=== PATIENT | male | born 1945 | race African-American/Black ===

== ENCOUNTER → 2017-02-11 | Outpatient (CLI) | payer MEDICARE, MEDICAID ==
--- NOTE | 2017-02-11 13:28 | RADIOLOGY REPORT (SQ) ---
EXAM DESCRIPTION: CT LUNG CANCER SCREENING COMPLETED DATE/TIME: 02/11/2017 10:13 am REASON FOR STUDY: PERSONAL HX OF NICOTINE DEPENDENCE (Z87.891) Z87.891 PERSONAL HISTORY OF NICOTINE DEPENDENCE Has the patient had a Chest CT scan within the past year? No Was the patient offered tobacco cessation counseling? No Was the patient engaged in shared decision making for this test? Yes Does the patient have signs or symptoms of Lung Cancer? No Is the patient a smoker? No How many packs per year? 365 How many years since quitting smoking? 2 years Patients age: 71 COMPARISON: CT abdomen pelvis 10/19/2015 TECHNIQUE: Low Dose CT scan performed of the chest without intravenous contrast for purposes of scre ening for lung cancer. Images reviewed with lung, soft tissue and bone windows. Reconstructed coron al and sagittal MPR images reviewed. All images stored on PACS. All CT scanners at this facility use dose modulation, iterative reconstruction, and/or weight based d osing when appropriate to reduce radiation dose to as low as reasonably achievable (ALARA). [facility]: Dose Right [facility]: CareDose [facility]: Dose Right [facility]: Teradose 4D [facility]: [employer] Interactive RADIATION DOSE: 2.8 mGy. . LIMITATIONS: None FINDINGS: LUNGS AND PLEURA: No masses or nodules. No pleural effusions or calcifications. No pne umothorax. No scarring or interstitial changes. Mild obstructive lung disease at both upper lobes and superior segments of the lower lobes. HILAR AND MEDIASTINAL STRUCTURES: No identified masses. No abnormal nodes. HEART AND VASCULAR STRUCTURES: No aortic aneurysm. No pericardial effusion. No cardiac devices. CORONARY ARTERY CALCIFICATIONS: No significant calcifications. UPPER ABDOMEN, THYROID, BONES, OTHER SOFT TISSUES: No significant findings. IMPRESSION: OBSTRUCTIVE LUNG DISEASE. NO OTHER SIGNIFICANT FINDING IN THE LUNGS ON NON-CONTRASTED C HEST CT. NO OTHER CLINICALLY SIGNIFICANT/POTENTIALLY CLINICALLY SIGNIFICANT FINDINGS LUNGRADS: LUNGRADS: 1 NEGATIVE. NO NODULES, OR DEFINITELY BENIGN NODULES MODIFIER: NONE RECOMMENDATION: Continue annual screening with LDCT in 12 months. COMMENT: CRITERIA: No lung nodules. Nodules with specific calcifications: Complete, central, popcorn, concentric rings and fat containin g nodules. TECHNICAL DOCUMENTATION: JOB ID: [id number] Quality ID # [id number]: Final reports with documentation of one or more dose reduction techniques (e.g., Au tomated exposure control, adjustment of the mA and/or kV according to patient size, use of iterative reconstruction technique) 2010 [employer]
== END ==
LOC: RAD 08:54
PROVIDERS: ATTEND Family Medicine
DX: Z12.2 Encounter for screening for malignant neoplasm of respiratory organs (principal); Z87.891 Personal history of nicotine dependence
CPT/HCPCS: G0297

== ENCOUNTER → 2017-12-24 | Outpatient (CLI) | payer MEDICAID, MEDICARE ==
[~2017-12-24] MED LIST: REGADENOSON INJ 0.4 MG/5 ML DISP.SYRIN IV ONE
--- NOTE | 2017-12-27 22:16 | DRAGON STRESS TEST REPORT ---
Intravenous Lexiscan Cardiolite stress test using single photon emmision computerized tomography. Date of procedure: 12/24/17. Ordering Provider: Dr. Donato. Patient's status: Out Patient. Indication.: Chest pain. Coronary risk factors: Age, hypertension, diabetes mellitus type 2, and dyslipidemia. Resting EKG: Sinus Rhythm. Within normal limits. Stress EKG: No changes of ischemia. The patient had no chest pain or discomfort, and there were no arrhythmias seen. Reason for termination: Protocol. Conclusions: Normal EKG and hemodynamic response to IV Lexiscan. Nuclear data: At rest the patient was given 15.17 millicuries of technetium 99m sestamibi injected intravenously. As per protocol rest non gated SPECT images were obtained. Subsequently the patient was given intravenous Lexiscan at a dose of 0.4 mg in 5 mL intravenously, followed by flush with normal saline. Subsequently the stress dose of 46.8 millicuries of technetium 99m sestamibi was injected intravenously. As per protocol stress gated images were obtained. Nuclear interpretation: Review of images showed that there was liver and bowel contamination artifact of the inferior wall. There is a perfusion defect involving a small area of the LV apical segments in the stress images, which normalizes in this rest imaging images.. There is also a small area of perfusion defect involving the apical lateral wall in the stress images, which normalizes in the rest images. These segments and the rest of the myocardial segments showed normal thickening. The rest of the myocardial segments had normal perfusion at rest and normal perfusion post stress with IV Lexiscan. The left ventricular chamber size seems to be mildly enlarged and there is mild diffuse hypokinesis. All segments of the myocardium had normal thickening by gated study. There was mild global hypokinesis, with mildly dilated left ventricular chamber size T. I D. ratio was abnormal at 1.27. Computer read rest, and stress left ventricular ejection fraction were 54 %, and 45 %, respectively. Visually both the stress and rest ejection fractions were mildly reduced at 45% to 50 %. Conclusion: 1. There is scintigraphic evidence of Lexiscan induced myocardial ischemia involving a small area of the apical segments of the left ventricle, and the apical lateral wall. 2. There is no scintigraphic evidence of myocardial infarction/scar. 3. There is mild global hypokinesis, with enlarged left ventricle, suggestive of mild cardiomyopathy. 4. Abnormal TID ratio, which could mean significant coronary artery disease. Recommendations: 1.Aggressive medical treatment of coronary artery disease, and cardiomyopathy. 2.Strongly recommend cardiac catheterization to define coronary anatomy for any revascularization lesions. 3, Aggressive risk factor modification, and treating the underlying co- morbidities. MTDD
== END ==
LOC: RAD 07:11
PROVIDERS: ATTEND Family Medicine
DX: R07.9 Chest pain, unspecified (principal)
CPT/HCPCS: 93017; 78452; A9500; J2785; Q9969

== ENCOUNTER 2018-03-22 10:00 | Inpatient (IN) | payer MEDICARE ==
--- NOTE | 2018-03-22 10:13 | ER Document Report ---
ED Medical Screen (RME) - General Chief Complaint: Urinary Problem Stated Complaint: PAINFUL URINATION Time Seen by Provider: 03/22/18 10:12 Mode of Arrival: Ambulatory Information source: Patient TRAVEL OUTSIDE OF THE [place] IN LAST 30 DAYS: No - HPI Patient complains to provider of: dysuria, leg pain Onset: Yesterday - pt with above c/o -- also frequency, nausea, and chills - Related Data Allergies/Adverse Reactions: aspirin Allergy (Severe, Verified 03/22/18 10:01) Bronchospasm Past Medical History - Past Medical History Cardiac Medical History: Reports: Hx Hypertension Pulmonary Medical History: Reports: Hx COPD Musculoskeltal Medical History: Reports Hx Arthritis, Reports Hx Musculoskeletal Trauma Past Surgical History: Reports: Hx Appendectomy, Hx Orthopedic Surgery - lower back, Hx Tonsillectomy - Immunizations Immunizations up to date: Yes Hx Diphtheria, Pertussis, Tetanus Vaccination: Yes Physical Exam - Vital signs Vitals: Temp Pulse Resp BP Pulse Ox 98.7 F 93 16 122/57 L 92 03/22/18 10:05 03/22/18 10:05 03/22/18 10:05 03/22/18 10:05 03/22/18 10:05 Course - Vital Signs Vital signs: Temp Pulse Resp BP Pulse Ox 98.7 F 93 16 122/57 L 92 03/22/18 10:05 03/22/18 10:05 03/22/18 10:05 03/22/18 10:05 03/22/18 10:05 Doctor's Discharge - Discharge Referrals: ADRIANNE PARIKH MD [Primary Care Provider] - Follow up as needed
[2018-03-22 10:36] LABS: HEMATOCRIT 44.4 % (37.9-51.0); HEMOGLOBIN 14.9 g/dL (13.5-17.0); MEAN CORPUSCULAR HEMOGLOBIN 33.5 pg (27.0-33.4); MEAN CORPUSCULAR HGB CONC 33.6 g/dL (32.0-36.0); MEAN CORPUSCULAR VOLUME 100 fl (80-97); PLATELET COUNT 216 10^3/uL (150-450); RED BLOOD COUNT 4.46 10^6/uL (4.35-5.55); RED CELL DISTRIBUTION WIDTH 13.7 % (11.5-14.0); WHITE BLOOD COUNT 18.8 10^3/uL (4.0-10.5)
[2018-03-22 10:53] LABS: ALANINE AMINOTRANSFERASE 32 U/L (21-72); ALBUMIN 4.3 g/dL (3.5-5.0); ALKALINE PHOSPHATASE 71 U/L (38-126); ANION GAP 14 (5-19); ASPARTATE AMINO TRANSFERASE 32 U/L (17-59); BILIRUBIN,DIRECT 0.6 mg/dL (0.0-0.4); BILIRUBIN,TOTAL 1.6 mg/dL (0.2-1.3); BLOOD UREA NITROGEN 17 mg/dL (7-20); CALCIUM 9.7 mg/dL (8.4-10.2); CARBON DIOXIDE 27 mmol/L (22-30); CHLORIDE 97 mmol/L (98-107); GLUCOSE 128 mg/dL (75-110); POTASSIUM 4.5 mmol/L (3.6-5.0); SODIUM 137.6 mmol/L (137-145); TOTAL PROTEIN 7.7 g/dL (6.3-8.2)
[2018-03-22 10:54] LABS: ABSOLUTE LYMPHOCYTES# (MANUAL) 0.9 10^3/uL (0.5-4.7); ABSOLUTE MONOCYTES # (MANUAL) 1.5 10^3/uL (0.1-1.4); ABSOLUTE NEUTROPHILS# (MANUAL) 16.4 10^3/uL (1.7-8.2); BASOPHILS % (MANUAL) 0 % (0-2); EOSINOPHILS % (MANUAL) 0 % (0-6); LYMPHOCYTES % (MANUAL) 5 % (13-45); MONOCYTES % (MANUAL) 8 % (3-13); PLATELET COMMENT ADEQUATE; SEGMENTED NEUTROPHILS % (MAN) 87 % (42-78); TOTAL CELLS COUNTED 100
[2018-03-22 11:22] LABS: APPEARANCE,URINE CLOUDY; BILIRUBIN,URINE NEGATIVE (NEGATIVE); COLOR,URINE DARK YELLOW; GLUCOSE, URINE NEGATIVE (NEGATIVE); KETONES,URINE NEGATIVE (NEGATIVE); LEUKOCYTE ESTERASE,URINE LARGE (NEGATIVE); NITRITE,URINE NEGATIVE (NEGATIVE); PROTEIN,URINE 100 mg/dL (NEGATIVE); URINE SPECIFIC GRAVITY 1.018
[2018-03-22] MEDS ORDERED: CEFTRIAXONE INJ 1000 MG VIAL IV ONE (12:00)
[2018-03-22] MEDS ORDERED: NORMAL SALINE 1000 ML 1,000 ML IV ONE (12:01)
[2018-03-22] MEDS ORDERED: ONDANSETRON HCL INJ/PF 4 MG/2 ML SDV IV ONE (12:01)
[2018-03-22] MEDS ORDERED: KETOROLAC TROMETHAMINE INJ/PF 30 MG/1 ML SDV IV ONE (12:01)
--- NOTE | 2018-03-22 12:04 | ER Document Report ---
ED General - General Chief Complaint: Urinary Problem Stated Complaint: PAINFUL URINATION Time Seen by Provider: 03/22/18 10:12 Mode of Arrival: Ambulatory TRAVEL OUTSIDE OF THE [place] IN LAST 30 DAYS: No - HPI Notes: Patient is a 72-year-old male that presents to the emergency department for chief complaint of dysuria. Patient reports dysuria and urinary frequency for the last 3-4 days. He denies history of urinary tract infections in the past. He denies any abdominal pain but does have nausea with a few episodes of vomiting. Family reports decreased appetite. Patient also reports myalgia diffusely. He denies having any fevers at home. He has not taken any medication for his pain. Past Medical History: Diabetes, hypertension, hyperlipidemia, CAD Past Surgical History: Coronary stent x1, low back surgery x2, appendectomy, tonsils and adenoids Social History: Denies drugs alcohol and tobacco Family History: Reviewed and noncontributory for presenting illness Allergies: Reviewed, see documented allergy list. REVIEW OF SYSTEMS: CONSTITUTIONAL : No fever No chills No diaphoresis No recent illness EENT: No vision changes No congestion No sore throat CARDIOVASCULAR: No chest pain No palpitations RESPIRATORY: No shortness of breath No cough No difficulty breathing GASTROINTESTINAL: No abdominal pain No nausea No vomiting No diarrhea GENITOURINARY: dysuria No hematuria difficulty urinating MUSCULOSKELETAL: No back pain leg pain Diffuse myalgias SKIN: No rashes No lesions LYMPHATIC: No swollen, enlarged glands. NEUROLOGICAL: No lightheadedness No headache No weakness No paresthesias PSYCHIATRIC: No anxiety No depression PHYSICAL EXAMINATION: Vital signs reviewed, nursing noted reviewed. GENERAL: Well-appearing, well-nourished and in no acute distress. HEAD: Atraumatic, normocephalic. EYES: Eyes appear normal, extraocular movements intact, sclera anicteric, conjunctiva are normal. ENT: nares patent, oropharynx clear without exudates. Moist mucous membranes. NECK: Normal range of motion, supple without lymphadenopathy LUNGS: Breath sounds clear to auscultation bilaterally and equal. No wheezes rales or rhonchi. HEART: Regular rate and rhythm without murmurs ABDOMEN: Soft, nontender, normoactive bowel sounds. No rebound, guarding, or rigidity. No masses appreciated. EXTREMITIES: Nontender, good range of motion, no pitting or edema. NEUROLOGICAL: No focal neurological deficits. Moves all extremities spontaneously Motor and sensory grossly intact on exam. PSYCH: Normal mood, normal affect. SKIN: Warm, Dry, normal turgor, no rashes or lesions noted on exposed skin - Related Data Allergies/Adverse Reactions: No Known Allergies Allergy (Unverified 03/22/18 10:14) Past Medical History - General Information source: Patient - Social History Smoking Status: Never Smoker Family History: Arthritis, Malignancy - leukemia Patient has suicidal ideation: No Patient has homicidal ideation: No - Past Medical History Cardiac Medical History: Reports: Hx Hypertension Pulmonary Medical History: Reports: Hx COPD Renal/ Medical History: Denies: Hx Peritoneal Dialysis Musculoskeletal Medical History: Reports Hx Arthritis, Reports Hx Musculoskeletal Trauma Past Surgical History: Reports: Hx Appendectomy, Hx Orthopedic Surgery - lower back, Hx Tonsillectomy - Immunizations Immunizations up to date: Yes Hx Diphtheria, Pertussis, Tetanus Vaccination: Yes Hx Pneumococcal Vaccination: 03/22/12 Review of Systems - Review of Systems Notes: Dictated Physical Exam - Vital signs Vitals: Temp Pulse Resp BP Pulse Ox 98.7 F 93 16 122/57 L 92 03/22/18 10:05 03/22/18 10:05 03/22/18 10:05 03/22/18 10:05 03/22/18 10:05 - Notes Notes: Dictated Course - Re-evaluation Re-evalutation: 03/22/18 12:08 Vitals reviewed. Nursing notes reviewed. Patient does not meet sepsis criteria. He does have a leukocytosis of 18 and a urinary tract infection. IV hydration, Zofran and Toradol for symptomatic management. UTI treated with IV Rocephin. Patient has had a hard time managing his symptoms at home and does not feel comfortable being treated at home. He has had continued vomiting and will likely not tolerate oral antibiotics. Patient will be admitted to the hospital for IV antibiotics and observation. Case discussed with Kristi Mattson who accepted the admission. Patient stable at time of admission. Laboratory 03/22/18 03/22/18 03/22/18 10:17 10:17 10:57 WBC 18.8 H RBC 4.46 Hgb 14.9 Hct 44.4 MCV 100 H MCH 33.5 H MCHC 33.6 RDW 13.7 Plt Count 216 Total Counted 100 Seg Neutrophils % Not Reportable Seg Neuts % (Manual) 87 H Lymphocytes % Not Reportable Lymphocytes % (Manual) 5 L Monocytes % Not Reportable Monocytes % (Manual) 8 Eosinophils % Not Reportable Eosinophils % (Manual) 0 Basophils % Not Reportable Basophils % (Manual) 0 Absolute Neutrophils Not Reportable Abs Neuts (Manual) 16.4 H Absolute Lymphocytes Not Reportable Abs Lymphs (Manual) 0.9 Absolute Monocytes Not Reportable Abs Monocytes (Manual) 1.5 H Absolute Eosinophils Not Reportable Absolute Eos (Manual) 0.0 Absolute Basophils Not Reportable Abs Basophils (Manual) 0.0 Platelet Comment ADEQUATE Sodium 137.6 Potassium 4.5 Chloride 97 L Carbon Dioxide 27 Anion Gap 14 BUN 17 Creatinine 1.30 H Est GFR ( Amer) > 60 Est GFR (Non-Af Amer) 54 L Glucose 128 H Calcium 9.7 Total Bilirubin 1.6 H Direct Bilirubin 0.6 H Neonat Total Bilirubin Not Reportable Neonat Direct Bilirubin Not Reportable Neonat Indirect Bili Not Reportable AST 32 ALT 32 Alkaline Phosphatase 71 Total Protein 7.7 Albumin 4.3 Urine Color DARK YELLOW Urine Appearance CLOUDY Urine pH 5.0 Ur Specific Clive 1.018 Urine Protein 100 H Urine Glucose (UA) NEGATIVE Urine Ketones NEGATIVE Urine Blood LARGE H Urine Nitrite NEGATIVE Urine Bilirubin NEGATIVE Urine Urobilinogen 4.0 H Ur Leukocyte Esterase LARGE H Urine WBC (Auto) >182 Urine RBC (Auto) 20 Urine Bacteria (Auto) 2+ Urine WBC Clumps MANY Squamous Epi Cells Auto 1 Urine Mucus (Auto) FEW Urine Ascorbic Acid NEGATIVE - Vital Signs Vital signs: Temp Pulse Resp BP Pulse Ox 98.7 F 93 16 122/57 L 92 03/22/18 10:05 03/22/18 10:05 03/22/18 10:05 03/22/18 10:05 03/22/18 10:05 - Laboratory Result Diagrams: 03/22/18 10:17 03/22/18 10:17 Laboratory results interpreted by me: 03/22/18 03/22/18 03/22/18 10:17 10:17 10:57 WBC 18.8 H MCV 100 H MCH 33.5 H Seg Neuts % (Manual) 87 H Lymphocytes % (Manual) 5 L Abs Neuts (Manual) 16.4 H Abs Monocytes (Manual) 1.5 H Chloride 97 L Creatinine 1.30 H Est GFR (Non-Af Amer) 54 L Glucose 128 H Total Bilirubin 1.6 H Direct Bilirubin 0.6 H Urine Protein 100 H Urine Blood LARGE H Urine Urobilinogen 4.0 H Ur Leukocyte Esterase LARGE H Discharge - Discharge Clinical Impression: UTI (urinary tract infection) Qualifiers: Urinary tract infection type: site unspecified Hematuria presence: without hematuria Qualified Code(s): N39.0 - Urinary tract infection, site not specified Vomiting Qualifiers: Vomiting type: unspecified Vomiting Intractability: non-intractable Nausea presence: with nausea Qualified Code(s): R11.2 - Nausea with vomiting, unspecified Condition: Stable Disposition: ADMITTED OBSERVATION Admitting Provider: Hospitalist Unit Admitted: Medical Floor
[2018-03-22] MEDS ORDERED: ONDANSETRON HCL INJ/PF 4 MG/2 ML SDV IV PRN (12:27)
[2018-03-22] MEDS ORDERED: ACETAMINOPHEN 325 MG TABLET PO PRN (12:27)
[2018-03-22] MEDS ORDERED: MAG HYDROX/AL HYDROX/SIMETH SUSP 30 ML UDCUP PO PRN (12:27)
[2018-03-22] MEDS ORDERED: PROMETHAZINE HCL INJ 25 MG/1 ML VIAL IV PRN (12:27)
[2018-03-22] MEDS ORDERED: DEXTROSE 40% GEL 15 GM TUBE PO PRN ×2 (13:20)
[2018-03-22] MEDS ORDERED: INSULIN LISPRO 100 UNIT/ML 3 ML VIAL SUBCUT PRN (13:20)
[2018-03-22] MEDS ORDERED: GLUCAGON,HUMAN RECOMB 1 MG INJ IM PRN (13:20)
[2018-03-22] MEDS ORDERED: DEXTROSE 50%-WATER 25 GM/50 ML DISP.SYRIN IV PRN ×2 (13:20)
[2018-03-22] MEDS ORDERED: IPRATROPIUM/ALBUTEROL 0.5-2.5 MG/3 ML AMPUL NEB PRN (13:21)
[2018-03-22] MEDS ORDERED: CEFTRIAXONE 1 GM/D5W RTU 1 GM/50 ML RTUPB IV ONE (14:00)
[2018-03-22] MEDS ORDERED: HYDRALAZINE HCL INJ/PF 20 MG/1 ML SDV IV PRN (14:27)
--- NOTE | 2018-03-22 14:29 | PDOC H&P ---
History of Present Illness Admission Date/PCP: 03/22/18 12:09 ADRIANNE PARIKH MD Patient complains of: abdominal pain, urinary urgency and frequency History of Present Illness: SAROJ CAMPOS is a 72 year old male with a past medical history of CAD (stent x 1 ), HTN, HLD, COPD, DM, MOISE, and Obesity who presented to the emergency department today with a complaint of 3 days of fever, chills, malaise, generalized body aches, nausea, poor p.o. intake, intense suprapubic abdominal pain, urinary urgency, frequency, and dysuria. He also reports feeling constipated, despite several diarrhea bowel movements yesterday. Evaluation in the emergency department revealed acutely ill appearance, normal vital signs, leukocytosis (WBC 18.8), baseline creatinine (1.30), and urinalysis that was grossly positive for UTI. Due to his inability to tolerate p.o. secondary to abdominal discomfort and nausea, the patient was referred to the hospitalist service for admission and management of the above stated complaints. Past Medical History Cardiac Medical History: Reports: Coronary Artery Disease, Hyperlipidema, Hypertension Pulmonary Medical History: Reports: Chronic Obstructive Pulmonary Disease (COPD) , Sleep Apnea EENT Medical History: Reports: None Neurological Medical History: Reports: None Endocrine Medical History: Reports: Diabetes Mellitus Type 2 Renal/ Medical History: Reports: Chronic Kidney Disease Denies: Nephrolithiasis Malignancy Medical History: Reports: None GI Medical History: Reports: None Musculoskeltal Medical History: Reports: Arthritis Skin Medical History: Reports: None Psychiatric Medical History: Reports: Alcohol Dependency Traumatic Medical History: Reports: None Hematology: Reports: None Infectious Medical History: Reports: None Past Surgical History Past Surgical History: Reports: Appendectomy, Coronary Stent, Orthopedic Surgery - lower back, shoulder, Tonsillectomy Social History Information Source: Patient, Relative Lives with: Spouse/Significant other Smoking Status: Former Smoker Last Time Smoked: 2013 Frequency of Alcohol Use: None Hx Recreational Drug Use: No Hx Prescription Drug Abuse: No - Advance Directive Resuscitation Status: Full Code Surrogate healthcare decision maker:: The patient's . Family History Family History: Arthritis, Malignancy - leukemia Parental Family History Reviewed: Yes Children Family History Reviewed: Yes Sibling(s) Family History Reviewed.: Yes Medication/Allergy Allergies/Adverse Reactions: No Known Allergies Allergy (Unverified 03/22/18 10:14) Review of Systems Constitutional: PRESENT: anorexia, chills, fatigue, fever(s). ABSENT: headache( s), weight gain, weight loss Eyes: ABSENT: visual disturbances Ears: ABSENT: hearing changes Cardiovascular: ABSENT: chest pain, dyspnea on exertion, edema, orthropnea, palpitations Respiratory: ABSENT: cough, hemoptysis Gastrointestinal: PRESENT: abdominal pain, constipation, diarrhea, nausea. ABSENT: hematemesis, hematochezia, vomiting Genitourinary: PRESENT: dysuria. ABSENT: hematuria Musculoskeletal: ABSENT: joint swelling Integumentary: ABSENT: rash, wounds Neurological: ABSENT: abnormal gait, abnormal speech, confusion, dizziness, focal weakness, syncope Psychiatric: ABSENT: anxiety, depression, homidical ideation, suicidal ideation Endocrine: ABSENT: cold intolerance, heat intolerance, polydipsia, polyuria Hematologic/Lymphatic: ABSENT: easy bleeding, easy bruising Physical Exam Vital Signs: Temp Pulse Resp BP Pulse Ox 100.0 F 92 16 114/52 L 95 03/22/18 13:21 03/22/18 13:21 03/22/18 10:05 03/22/18 13:21 03/22/18 13:21 General appearance: PRESENT: cooperative - Pleasant, mild distress, obese, well- developed, well-nourished, other - acutely ill appearing Head exam: PRESENT: atraumatic, normocephalic Eye exam: PRESENT: conjunctival injection - R>L; no drainage, conjunctiva pink, EOMI, PERRLA. ABSENT: scleral icterus Ear exam: PRESENT: normal external ear exam Mouth exam: PRESENT: moist, tongue midline Neck exam: ABSENT: carotid bruit, JVD, lymphadenopathy, thyromegaly Respiratory exam: PRESENT: clear to auscultation myrtle, symmetrical, unlabored. ABSENT: rales, rhonchi, wheezes Cardiovascular exam: PRESENT: RRR, +S1, +S2. ABSENT: diastolic murmur, rubs, systolic murmur Pulses: PRESENT: normal dorsalis pedis pul Vascular exam: PRESENT: normal capillary refill GI/Abdominal exam: PRESENT: guarding, normal bowel sounds, soft, tenderness, other - severe abd pain w/ bilateral leg flexion at hip. ABSENT: distended, mass, organolmegaly, rebound Rectal exam: PRESENT: deferred Extremities exam: PRESENT: full ROM. ABSENT: calf tenderness, clubbing, pedal edema Neurological exam: PRESENT: alert, awake, oriented to person, oriented to place , oriented to time, oriented to situation, CN II-XII grossly intact. ABSENT: motor sensory deficit Psychiatric exam: PRESENT: appropriate affect, normal mood. ABSENT: homicidal ideation, suicidal ideation Skin exam: PRESENT: dry, intact, warm. ABSENT: cyanosis, rash Assessment & Plan - Diagnosis (1) UTI (urinary tract infection) Qualifiers: Urinary tract infection type: site unspecified Hematuria presence: with hematuria Qualified Code(s): N39.0 - Urinary tract infection, site not specified; R31.9 - Hematuria, unspecified; R31.9 - Hematuria, unspecified Is this a current diagnosis for this admission?: Yes Plan: The patient presents with 3 days of fever, chills, malaise, generalized body aches, abdominal pain, nausea, dysuria, urinary urgency and frequency. No CVA tenderness. Symptoms are somewhat concerning for prostatitis as the patient had exquisitely tender prostate on exam. Urinalysis grossly positive for UTI. Blood and urine cultures are pending. The patient is admitted to the medical floor. He is provided Rocephin 2 g IV daily. We will continue maintenance fluids. Antiemetics, analgesics, and antipyretics as needed. CT of the abdomen and pelvis is pending. (2) Leukocytosis Is this a current diagnosis for this admission?: Yes Plan: Secondary to #1; cultures and antibiotics as above. (3) HTN (hypertension) Is this a current diagnosis for this admission?: Yes Plan: We will continue the patient's home medication regiment once reconciled. IV hydralazine as needed for blood pressure control. Cardiac diet. (4) CAD (coronary artery disease) Qualifiers: Associated angina: without angina Is this a current diagnosis for this admission?: Yes Plan: Daily aspirin therapy. We will continue the patient's home antihypertensives and statin therapy once medications are reconciled. Cardiac diet. (5) Diabetes Qualifiers: Diabetes mellitus type: type 2 Diabetes mellitus residential insulin use: without termite inspector use Chronic kidney disease stage: stage 2 (mild) Is this a current diagnosis for this admission?: Yes Plan: Patient's home antihypertensives are held. He is placed on a consistent carb diet. At bedtime with Humalog for sliding scale coverage. Registered dietitian has been consulted; appreciate their evaluation recommendations. - Time Time Spent: 50 to 70 Minutes Medications reviewed and adjusted accordingly: Yes Anticipated discharge: Home
[2018-03-22] MEDS: NORMAL SALINE 1000 ML 1,000 ML IV PRN (14:36)
[2018-03-22] MEDS: HEPARIN SOD (PORCINE) 5,000 UNIT/ML 1 ML SYRINGE SUBCUT SCH ×2 (15:00→21:12)
--- NOTE | 2018-03-22 15:55 | RADIOLOGY REPORT (SQ) ---
EXAM DESCRIPTION: CT ABD/PELVIS COMBO COMPLETED DATE/TIME: 03/22/2018 2:06 pm REASON FOR STUDY: Fever, ABD pain, CVA tenderness, rectal pain N39.0 URINARY TRACT INFECTION, SITE NOT SPECIFIED R10.84 GENERALIZED ABDOMINAL PAIN COMPARISON: None. TECHNIQUE: CT scan of the abdomen and pelvis performed with and without intravenous contrast, and wi thout oral contrast. Contrasted imaging performed helical scanning technique and dynamic intravenous contrast injection. Images reviewed with lung, soft tissue, and bone windows. Reconstructed coronal a nd sagittal MPR images reviewed. Delayed images for evaluation of the urinary system also acquired. A ll images stored on PACS. All CT scanners at this facility use dose modulation, iterative reconstruction, and/or weight based d osing when appropriate to reduce radiation dose to as low as reasonably achievable (ALARA). [facility]: Dose Right [facility]: CareDose [facility]: Dose Right [facility]: Teradose 4D [facility]: [employer] CONTRAST TYPE AND DOSE: contrast/concentration: Isovue 350.00 mg/ml; Total Contrast Delivered: 100.0 ml; Total Saline Delivered: 72.0 ml RENAL FUNCTION: GFR > 60. RADIATION DOSE: CT Rad equipment meets quality standard of care and radiation dose reduction techniq ues were employed. CTDIvol: 20.7 - 21.1 mGy. DLP: 4606 mGy-cm.. LIMITATIONS: None. FINDINGS: NON-CONTRASTED IMAGING: No significant renal or bladder calcifications. No other significa nt organ calcifications. POST-CONTRASTED IMAGING: LOWER CHEST: No significant findings. No nodules or infiltrates. LIVER: Normal size. No masses. No dilated ducts. SPLEEN: Normal size. No focal lesions. PANCREAS: Faint calcifications in the pancreatic head suggests chronic pancreatitis. No active infla mmatory changes or other pancreatic abnormality identified. GALLBLADDER: Cholelithiasis is suggested. ADRENAL GLANDS: No significant masses or asymmetry. RIGHT KIDNEY AND URETER: No solid masses. No significant calcification. No hydronephrosis or hydroure ter. LEFT KIDNEY AND URETER: Central round mass in the left kidney measures 3.6 cm. Chronic but slightly larger compared to 2016. Variable Hounsfield units on pre and post contrast scanning, doubt true enh ancement. No urinary obstruction or stones. AORTA AND VESSELS: No aneurysm. No dissection. Renal arteries, SMA, celiac without stenosis. RETROPERITONEUM: No retroperitoneal adenopathy, hemorrhage or masses. BOWEL AND PERITONEAL CAVITY: No masses or inflammatory changes. No free fluid or peritoneal masses. No active GI bleeding suggested. APPENDIX: Surgically absent. PELVIS: Prostate enlargement. Normal appearance of the bladder, allowing for mild wall thickening. No perirectal fluid collections or inflammatory changes. ABDOMINAL WALL: No masses. No hernias. BONES: Spondylosis. No fracture or bone lesion. OTHER: No other significant finding. IMPRESSION: 1. No acute or suspicious abdominopelvic abnormality appreciated. Specifically no evide nce of urinary obstruction or stones. Loops of bowel look generally unremarkable. 2. Incidental low density mass in the central left kidney is felt to represent a slightly larger cyst. No overtly wor risome masses. 3. Changes of chronic pancreatitis. No active inflammatory change appreciated. 4. M arked prostate enlargement. TECHNICAL DOCUMENTATION: JOB ID: [id number] Quality ID # [id number]: Final reports with documentation of one or more dose reduction techniques (e.g., Au tomated exposure control, adjustment of the mA and/or kV according to patient size, use of iterative reconstruction technique) 2010 [employer]- All Rights Reserved Reading location - IP/workstation name: [email or web address]
[2018-03-22] MEDS ORDERED: CEFTRIAXONE SODIUM 1,000 MG in NORMAL SALINE 100 ML IV ONE (16:00)
[2018-03-22] MEDS ORDERED: KETOROLAC TROMETHAMINE INJ/PF 30 MG/1 ML SDV IV PRN (17:00)
[2018-03-22] MEDS: LEVOFLOXACIN 750 MG/D5W RTU 750 MG/150 ML RTUPB IV SCH (17:02)
[2018-03-22] MEDS: HYDROCODONE/ACETAMINOPHEN 5-325 MG TABLET PO PRN (17:19)
[2018-03-22] MEDS: ATORVASTATIN CALCIUM 10 MG TABLET PO SCH (21:12)
[2018-03-22] MEDS: FAMOTIDINE 20 MG TABLET PO SCH (21:12)
[2018-03-23] MEDS: HEPARIN SOD (PORCINE) 5,000 UNIT/ML 1 ML SYRINGE SUBCUT SCH ×3 (05:12→23:38)
[2018-03-23 05:29] LABS: HEMATOCRIT 39.8 % (37.9-51.0); HEMOGLOBIN 13.5 g/dL (13.5-17.0); MEAN CORPUSCULAR HEMOGLOBIN 33.8 pg (27.0-33.4); MEAN CORPUSCULAR HGB CONC 33.9 g/dL (32.0-36.0); MEAN CORPUSCULAR VOLUME 100 fl (80-97); PLATELET COUNT 164 10^3/uL (150-450); RED CELL DISTRIBUTION WIDTH 13.7 % (11.5-14.0); WHITE BLOOD COUNT 16.1 10^3/uL (4.0-10.5)
[2018-03-23 05:54] LABS: ANION GAP 15 (5-19); BLOOD UREA NITROGEN 21 mg/dL (7-20); CALCIUM 8.8 mg/dL (8.4-10.2); CARBON DIOXIDE 25 mmol/L (22-30); CHLORIDE 98 mmol/L (98-107); GLUCOSE 96 mg/dL (75-110); POTASSIUM 4.1 mmol/L (3.6-5.0); SODIUM 137.8 mmol/L (137-145)
[2018-03-23] MEDS: HYDROCODONE/ACETAMINOPHEN 5-325 MG TABLET PO PRN ×3 (09:22→23:37)
[2018-03-23] MEDS: DOCUSATE SODIUM 100 MG CAPSULE PO SCH (09:26)
[2018-03-23] MEDS: FAMOTIDINE 20 MG TABLET PO SCH ×2 (09:26→23:38)
[2018-03-23] MEDS: TIOTROPIUM BROMIDE DPI 5 CAP/KIT (18 MCG/CAP) IH SCH (09:27)
[2018-03-23] MEDS: LOSARTAN POTASSIUM 50 MG TABLET PO SCH (09:27)
[2018-03-23] MEDS: MAGNESIUM OXIDE 400 MG TABLET PO SCH (09:27)
[2018-03-23] MEDS ORDERED: CEFTRIAXONE 2 GM/D5W RTU 50 ML IV SCH (10:00)
[2018-03-23] MEDS ORDERED: ASPIRIN 81 MG TABLET, CHEWABLE PO SCH (10:00)
[2018-03-23] MEDS: MAGNESIUM HYDROXIDE SUSP 30 ML UDCUP PO PRN (10:46)
[2018-03-23] MEDS: PHENAZOPYRIDINE HCL 200 MG TABLET PO SCH ×3 (11:31→23:38)
[2018-03-23] MEDS ORDERED: CEFTRIAXONE SODIUM 2,000 MG in DEXTROSE 5%-WATER 100 ML IV SCH (12:00)
--- NOTE | 2018-03-23 13:45 | Physician Advisory Note ---
Physician Advisor ProgressNote .: Pursuant to the plan for [facility], I have reviewed the medical record for this patient. Physician Advisor Statement: 72yo w/possible acute prostatitis, associated with acute suprapubic pain, nausea , F/C/poor po intake, signif leukocytosis, mild fever. Please consider documenting, if you agree: 1. whether you feel pt has "GPR bacteremia" or "GPR sepsis, evidenced by " (if the latter, explicitly state inciting infxn, & whether it was likely present/"brewing" on adm?) Status: Pt continues on IVF @125, IV LEvaquin. Still w/significicant leukocytosis, & showing evidence of GPR in BC, GNRs in ur cx. If attending feels not yet safe for d/c today, please document the clinical concerns/reasons, & may change to Inpt status. Thanks! CK
--- NOTE | 2018-03-23 14:16 | PDOC PROGRESS REPORT ---
Subjective Progress Note for:: 03/23/18 Subjective:: The patient is a 72 year old male with a past medical history of CAD (stent x 1) , HTN, HLD, COPD, DM, MOISE, and Obesity who was admitted 03/22/18 for UTI and prostatitis. The patient was seen on morning rounds and again this afternoon when his was present. He reports continued fever, chills, malaise, bilateral lower back pain, suprapubic abdominal pain, dysuria, and sensation of constipation/rectal fullness. He states he is feeling minimal improvement from yesterday. They have no other questions or concerns. No concerns per nursing. Reason For Visit: URINARY TRACT INFECTION/VOMITING Physical Exam Vital Signs: Temp Pulse Resp BP Pulse Ox 97.6 F 75 20 108/53 L 95 03/23/18 11:28 03/23/18 11:28 03/23/18 11:28 03/23/18 11:28 03/23/18 11:28 Intake & Output 03/22/18 03/23/18 03/24/18 06:59 06:59 06:59 Intake Total 2782 712 Output Total 250 500 Balance 2532 212 Weight 135.624 kg General appearance: PRESENT: no acute distress, cooperative - Pleasant, well- developed, well-nourished, other - acutely ill appearing Head exam: PRESENT: atraumatic, normocephalic Eye exam: PRESENT: conjunctival injection - R>L, no discharge, conjunctiva pink , EOMI, PERRLA. ABSENT: scleral icterus Ear exam: PRESENT: normal external ear exam Mouth exam: PRESENT: moist, tongue midline Neck exam: ABSENT: carotid bruit, JVD, lymphadenopathy, thyromegaly Respiratory exam: PRESENT: clear to auscultation myrtle. ABSENT: rales, rhonchi, wheezes Cardiovascular exam: PRESENT: RRR. ABSENT: diastolic murmur, rubs, systolic murmur Pulses: PRESENT: normal dorsalis pedis pul Vascular exam: PRESENT: normal capillary refill GI/Abdominal exam: PRESENT: guarding, normal bowel sounds, soft, tenderness. ABSENT: distended, mass, organolmegaly, rebound Rectal exam: PRESENT: prostate enlargement, prostate tenderness Extremities exam: PRESENT: full ROM. ABSENT: calf tenderness, clubbing, pedal edema Neurological exam: PRESENT: alert, awake, oriented to person, oriented to place , oriented to time, oriented to situation, CN II-XII grossly intact. ABSENT: motor sensory deficit Psychiatric exam: PRESENT: appropriate affect, normal mood. ABSENT: homicidal ideation, suicidal ideation Skin exam: PRESENT: dry, intact, warm. ABSENT: cyanosis, rash Results Laboratory Results: 03/23/18 04:24 03/23/18 04:24 03/23/18 03/23/18 04:24 04:24 WBC 16.1 H RBC 4.00 L Hgb 13.5 Hct 39.8 MCV 100 H MCH 33.8 H MCHC 33.9 RDW 13.7 Plt Count 164 Sodium 137.8 Potassium 4.1 Chloride 98 Carbon Dioxide 25 Anion Gap 15 BUN 21 H Creatinine 1.39 H Est GFR ( Amer) > 60 Est GFR (Non-Af Amer) 50 L Glucose 96 Calcium 8.8 Impressions: Abdomen/Pelvis CT 03/22/18 00:00 IMPRESSION: 1. No acute or suspicious abdominopelvic abnormality appreciated. Specifically no evidence of urinary obstruction or stones. Loops of bowel look generally unremarkable. 2. Incidental low density mass in the central left kidney is felt to represent a slightly larger cyst. No overtly worrisome masses. 3. Changes of chronic pancreatitis. No active inflammatory change appreciated. 4. Marked prostate enlargement. Assessment & Plan - Diagnosis (1) UTI (urinary tract infection) Qualifiers: Urinary tract infection type: site unspecified Hematuria presence: with hematuria Qualified Code(s): N39.0 - Urinary tract infection, site not specified; R31.9 - Hematuria, unspecified; R31.9 - Hematuria, unspecified Is this a current diagnosis for this admission?: Yes Plan: The patient presents with 3 days of fever, chills, malaise, generalized body aches, abdominal pain, nausea, dysuria, urinary urgency and frequency. No CVA tenderness. Urinalysis grossly positive for UTI. Urine culture growing gram-negative rods. Blood culture (one set) gram-positive rods Repeat blood cultures pending. The patient is admitted to the medical floor. He received Rocephin 2 g IV yesterday; has been transitioned to IV Levaquin for prostatitis. We will continue maintenance fluids. Antiemetics, analgesics, and antipyretics as needed. (2) Prostatitis, acute Is this a current diagnosis for this admission?: Yes Plan: The patient presented with fever, chills, malaise, dysuria, urinary urgency and frequency. Rectal exam revealed an enlarged and exquisitely tender prostate. WBCs were elevated to 18.8 at time of admission. Urinalysis grossly positive for UTI. Urine culture growing gram negative rods. CT ABD/Pelvis w/wo revealed an incidental finding of a low-density mass in the central left kidney representing a cyst, chronic changes of pancreatitis, markedly enlarged prostate, no other acute or suspicious findings. Negative for renal calculi or hydronephrosis. He has been placed on IV Levaquin; will adjust as cultures result. Will require urology follow-up as an outpatient. (3) Leukocytosis Qualifiers: Leukocytosis type: bandemia Qualified Code(s): D72.825 - Bandemia Is this a current diagnosis for this admission?: Yes Plan: Secondary to #1; has trended down, however remains significantly elevated. Cultures and antibiotics as above. (4) HTN (hypertension) Is this a current diagnosis for this admission?: Yes Plan: We have continued the patient's home dose losartan. IV hydralazine as needed for blood pressure control. Cardiac diet. (5) CAD (coronary artery disease) Qualifiers: Associated angina: without angina Is this a current diagnosis for this admission?: Yes Plan: Continue the patient's home regimen of losartan, brilinta, and atorvastatin. Cardiac diet. (6) Diabetes Qualifiers: Diabetes mellitus type: type 2 Diabetes mellitus senior consultant insulin use: without intermediate use Chronic kidney disease stage: stage 2 (mild) Is this a current diagnosis for this admission?: Yes Plan: Patient's home medications are held. He is placed on a consistent carb diet. Accu-Cheks before meals and at bedtime with Humalog for sliding scale coverage. Registered dietitian has been consulted; appreciate their evaluation and recommendations. (7) Bacteremia Is this a current diagnosis for this admission?: Yes Plan: The patient presented with subjective fever, chills, malaise, lower back pain, abdominal pain, urinary tract and prostatitis symptoms. He is confirmed to have a urinary tract infection by urinalysis is highly suggestive of prostatitis on exam. Urine cultures positive for gram-negative rods. Blood cultures (1 set) are growing gram-positive rods. Repeat blood cultures are pending. WBC trending down and TMax 100.2 since arrival. Pt recieved Rocephin 2 gm at time of admission. Now on IV Levaquin; will adjust as cultures result. - Time Time Spent with patient: 25-34 minutes Medications reviewed and adjusted accordingly: Yes Anticipated discharge: Home - Inpatient Certification Based on my medical assessment, after consideration of the patient's comorbidities, presenting symptoms, or acuity I expect that the services needed warrant INPATIENT care.: Yes I certify that my determination is in accordance with my understanding of Medicare's requirements for reasonable and necessary INPATIENT services [42 CFR 412.3e].: Yes Medical Necessity: Need For IV Fluids, Need for IV Antibiotics
[2018-03-23] MEDS ORDERED: KETOROLAC TROMETHAMINE INJ/PF 30 MG/1 ML SDV IV PRN (14:42)
[2018-03-23] MEDS ORDERED: ONDANSETRON HCL INJ/PF 4 MG/2 ML SDV IV PRN (15:00)
[2018-03-23] MEDS ORDERED: PROMETHAZINE HCL INJ 25 MG/1 ML VIAL IV PRN (15:00)
[2018-03-23] MEDS: LEVOFLOXACIN 750 MG/D5W RTU 750 MG/150 ML RTUPB IV SCH (17:31)
[2018-03-23] MEDS: TICAGRELOR 90 MG TABLET PO SCH (17:32)
[2018-03-23] MEDS: ATORVASTATIN CALCIUM 10 MG TABLET PO SCH (23:38)
[2018-03-24] MEDS: PHENAZOPYRIDINE HCL 200 MG TABLET PO SCH ×3 (05:32→21:04)
[2018-03-24] MEDS: HEPARIN SOD (PORCINE) 5,000 UNIT/ML 1 ML SYRINGE SUBCUT SCH ×3 (05:32→21:04)
[2018-03-24] MEDS: HYDROCODONE/ACETAMINOPHEN 5-325 MG TABLET PO PRN ×3 (05:33→20:25)
[2018-03-24] MEDS: NORMAL SALINE 1000 ML 1,000 ML IV PRN ×2 (05:56→12:47)
[2018-03-24 06:39] LABS: HEMATOCRIT 37.8 % (37.9-51.0); MEAN CORPUSCULAR HEMOGLOBIN 34.6 pg (27.0-33.4); MEAN CORPUSCULAR HGB CONC 34.4 g/dL (32.0-36.0); MEAN CORPUSCULAR VOLUME 100 fl (80-97); PLATELET COUNT 166 10^3/uL (150-450); RED BLOOD COUNT 3.77 10^6/uL (4.35-5.55); WHITE BLOOD COUNT 10.7 10^3/uL (4.0-10.5)
[2018-03-24 07:09] LABS: ANION GAP 13 (5-19); BLOOD UREA NITROGEN 27 mg/dL (7-20); CALCIUM 8.8 mg/dL (8.4-10.2); CARBON DIOXIDE 28 mmol/L (22-30); CHLORIDE 99 mmol/L (98-107); GLUCOSE 97 mg/dL (75-110); POTASSIUM 4.2 mmol/L (3.6-5.0); SODIUM 139.7 mmol/L (137-145)
[2018-03-24] MEDS: DOCUSATE SODIUM 100 MG CAPSULE PO SCH (09:06)
[2018-03-24] MEDS: FAMOTIDINE 20 MG TABLET PO SCH ×2 (09:06→21:04)
[2018-03-24] MEDS: TICAGRELOR 90 MG TABLET PO SCH ×2 (09:06→16:59)
[2018-03-24] MEDS: MAGNESIUM HYDROXIDE SUSP 30 ML UDCUP PO PRN (09:06)
[2018-03-24] MEDS: MAGNESIUM OXIDE 400 MG TABLET PO SCH (09:06)
[2018-03-24] MEDS: LOSARTAN POTASSIUM 50 MG TABLET PO SCH (09:06)
[2018-03-24] MEDS: TIOTROPIUM BROMIDE DPI 5 CAP/KIT (18 MCG/CAP) IH SCH (09:06)
[2018-03-24] MEDS: BACLOFEN 20 MG TABLET PO PRN (09:09)
--- NOTE | 2018-03-24 15:31 | PDOC PROGRESS REPORT ---
Subjective Progress Note for:: 03/24/18 Subjective:: No adverse events overnight. No new complaints. Vital signs been stable. He is been able to rest comfortably today. He is been able to eat and drink without difficulty. He still has some pain whenever he urinates. No fevers or chills. Reason For Visit: PROSTATITIS UTI LEUKOCYTOSIS BACTEREMIA Physical Exam Vital Signs: Temp Pulse Resp BP Pulse Ox 98.0 F 71 16 132/68 H 94 03/24/18 00:00 03/24/18 08:25 03/24/18 08:25 03/24/18 00:00 03/24/18 08:25 Intake & Output 03/23/18 03/24/18 03/25/18 06:59 06:59 06:59 Intake Total 816 856 Output Total 200 Balance 616 856 Weight 134.5 kg General appearance: PRESENT: no acute distress, cooperative - Pleasant, well- developed, well-nourished, other - acutely ill appearing Respiratory exam: PRESENT: clear to auscultation myrtle. ABSENT: rales, rhonchi, wheezes Cardiovascular exam: PRESENT: RRR. ABSENT: diastolic murmur, rubs, systolic murmur Pulses: PRESENT: normal dorsalis pedis pul Vascular exam: PRESENT: normal capillary refill GI/Abdominal exam: PRESENT: guarding, normal bowel sounds, soft, tenderness. ABSENT: distended, mass, organolmegaly, rebound Extremities exam: PRESENT: full ROM. ABSENT: calf tenderness, clubbing, pedal edema Neurological exam: PRESENT: alert, awake, oriented to person, oriented to place , oriented to time, oriented to situation Psychiatric exam: PRESENT: appropriate affect, normal mood. Skin exam: PRESENT: dry, intact, warm. ABSENT: cyanosis, rash Results Laboratory Results: 03/24/18 05:35 03/24/18 05:35 03/24/18 03/24/18 05:35 05:35 WBC 10.7 H RBC 3.77 L Hgb 13.0 L Hct 37.8 L MCV 100 H MCH 34.6 H MCHC 34.4 RDW 14.0 Plt Count 166 Sodium 139.7 Potassium 4.2 Chloride 99 Carbon Dioxide 28 Anion Gap 13 BUN 27 H Creatinine 1.34 H Est GFR ( Amer) > 60 Est GFR (Non-Af Amer) 52 L Glucose 97 Calcium 8.8 Impressions: Abdomen/Pelvis CT 03/22/18 00:00 IMPRESSION: 1. No acute or suspicious abdominopelvic abnormality appreciated. Specifically no evidence of urinary obstruction or stones. Loops of bowel look generally unremarkable. 2. Incidental low density mass in the central left kidney is felt to represent a slightly larger cyst. No overtly worrisome masses. 3. Changes of chronic pancreatitis. No active inflammatory change appreciated. 4. Marked prostate enlargement. Assessment & Plan - Diagnosis (1) Bacteremia due to Gram-negative bacteria Is this a current diagnosis for this admission?: Yes Plan: Most likely E. coli that is growing out of the urine. Currently on IV Rocephin. We will follow-up cultures and adjust coverage accordingly. (2) UTI (urinary tract infection) Qualifiers: Urinary tract infection type: site unspecified Hematuria presence: with hematuria Qualified Code(s): N39.0 - Urinary tract infection, site not specified; R31.9 - Hematuria, unspecified; R31.9 - Hematuria, unspecified Is this a current diagnosis for this admission?: Yes Plan: Due to E. coli. Susceptibilities pending. Only on Rocephin. (3) Prostatitis, acute Is this a current diagnosis for this admission?: Yes Plan: Enlarged prostate on CT and prostate was reported to be tender on exam. If the susceptibilities permit, would likely treat with Cipro for 1 month. He would also probably need a follow-up with a urologist. - Time Time Spent with patient: 25-34 minutes
[2018-03-24] MEDS: LEVOFLOXACIN 750 MG/D5W RTU 750 MG/150 ML RTUPB IV SCH (16:59)
[2018-03-24] MEDS: ATORVASTATIN CALCIUM 10 MG TABLET PO SCH (21:04)
[2018-03-25] MEDS: NORMAL SALINE 1000 ML 1,000 ML IV PRN ×2 (00:55→07:59)
[2018-03-25] MEDS: PHENAZOPYRIDINE HCL 200 MG TABLET PO SCH ×3 (06:27→21:29)
[2018-03-25] MEDS: HEPARIN SOD (PORCINE) 5,000 UNIT/ML 1 ML SYRINGE SUBCUT SCH ×3 (06:27→21:27)
[2018-03-25] MEDS: HYDROCODONE/ACETAMINOPHEN 5-325 MG TABLET PO PRN (06:30)
[2018-03-25] MEDS: DOCUSATE SODIUM 100 MG CAPSULE PO SCH (09:12)
[2018-03-25] MEDS: TICAGRELOR 90 MG TABLET PO SCH ×2 (09:12→17:00)
[2018-03-25] MEDS: FAMOTIDINE 20 MG TABLET PO SCH ×2 (09:12→21:27)
[2018-03-25] MEDS: LOSARTAN POTASSIUM 50 MG TABLET PO SCH (09:12)
[2018-03-25] MEDS: TIOTROPIUM BROMIDE DPI 5 CAP/KIT (18 MCG/CAP) IH SCH (09:12)
[2018-03-25] MEDS: MAGNESIUM OXIDE 400 MG TABLET PO SCH (09:12)
[2018-03-25] MEDS: BACLOFEN 20 MG TABLET PO PRN (09:12)
[2018-03-25] MEDS: KETOROLAC TROMETHAMINE INJ/PF 30 MG/1 ML SDV IV SCH ×3 (11:27→23:45)
--- NOTE | 2018-03-25 12:32 | PROGRESS NOTE E ---
Progress Note NAME: SAROJ CAMPOS : 1945 AGE: 72Y DATE: 03/25/2018 ROOM: 424 SUBJECTIVE: The patient is lying in bed. He states that he still has body ache and feels clammy since he feels fevered. The patient denies any nausea, vomiting, diarrhea. No shortness of breath, dizziness, chest pain. No fevers, chills. The patient has been afebrile since 03/22/2018. Blood pressures have been in a good range and the patient does not voice any other concerns at this time. REVIEW OF SYSTEMS: Rest of review of systems negative. MEDICATIONS: Medications have been reviewed. OBJECTIVE: GENERAL: The patient is a 72-year-old -[place] male who is awake, alert, and oriented to person, place, time, and situation. He is verbal, conversational, does not appear to be in acute distress. VITAL SIGNS: Temperature is 98.2, pulse 73, respirations 20, blood pressure is 147/69, oxygen saturation is 93% on room air. SKIN: Warm and dry. No rash. Not diaphoretic. HEENT: Pupils equal, round, and reactive to light and accommodation. Conjunctiva is pink. There is no evidence of JVP. CARDIOVASCULAR SYSTEM: Heart is regular. There is no murmur or rub. CHEST: Clear, symmetrical, unlabored. ABDOMEN: Obese, soft. EXTREMITIES: No clubbing, cyanosis, edema. PSYCHIATRIC: Appropriate affect, pleasant mood. DIAGNOSTICS: Lab values are as follows: Hematology obtained on 03/24/2018: WBCs are 10.7, hemoglobin is 13.0, hematocrit is 37.8, platelet count is 166,000. Chemistry obtained on 03/24/2018: Sodium is 139, potassium 4.2, chloride is 99, carbon dioxide 28, BUN 27, creatinine is 0.34, glucose 97, calcium is 8.8. IMPRESSION AND PLAN: 1. ACUTE PROSTATITIS. Will continue current treatment with fluoroquinolones and send the patient out on 30 days of coverage. The patient does have a urologist that he already follows. 2. E. COLI URINARY TRACT INFECTION SECONDARY TO NUMBER 1. Will continue to aggressively manage. Will add Pyridium for dysuria as well as Toradol for inflammation. 3. E. COLI BACTEREMIA SECONDARY TO THE ABOVE. Will continue IV fluoroquinolone. Repeat cultures have been negative. 4. SEPSIS SECONDARY TO THE ABOVE. The patient overall appears improved, no longer febrile. White count has trended down. Will follow. DISPOSITION: The patient is a FULL CODE. Pending patient's symptomatology and diagnostic findings, will re-evaluate in the a.m. Time spent on this followup including assessment, plan, physical examination, patient education, review of records, and family meeting is 20 minutes. DICTATING PHYSICIAN: BIBI FRANKS NP [id number] PHY#: [id number] ID: [id number] JOB#: [id number] ACCT: [id number] cc: >
[2018-03-25] MEDS: LEVOFLOXACIN 750 MG/D5W RTU 750 MG/150 ML RTUPB IV SCH (17:00)
[2018-03-25] MEDS: ATORVASTATIN CALCIUM 10 MG TABLET PO SCH (21:27)
[2018-03-26] MEDS: KETOROLAC TROMETHAMINE INJ/PF 30 MG/1 ML SDV IV SCH (05:41)
[2018-03-26] MEDS: PHENAZOPYRIDINE HCL 200 MG TABLET PO SCH (05:41)
[2018-03-26] MEDS: HEPARIN SOD (PORCINE) 5,000 UNIT/ML 1 ML SYRINGE SUBCUT SCH (05:42)
[2018-03-26 08:54] VITALS: BP 132/68
[2018-03-26] MEDS ORDERED: LEVOFLOXACIN 750 MG TABLET PO SCH (15:00)
--- NOTE | 2018-03-26 20:26 | DISCHARGE SUMMARY E ---
Discharge Summary NAME: SAROJ CAMPOS : 1945 AGE: 72Y ADMITTED: 03/23/2018 DISCHARGED: 03/26/2018 CODE STATUS: Full code. PRIMARY CARE PROVIDER: MA DISCHARGE DIAGNOSES: 1. Acute prostatitis. 2. Escherichia coli urinary tract infection secondary to #1. 3. Escherichia coli bacteremia secondary to the above. Repeat cultures were negative. 4. Sepsis secondary to all the above, overall is improved. DISCHARGE MEDICATIONS: 1. ProAir HFA 2 puffs inhalation q.4 hours as needed. 2. Aspirin 81 mg p.o. daily. 3. Lipitor 10 mg p.o. daily. 4. Baclofen 20 mg p.o. four times daily as needed. 5. Cipro 500 mg p.o. twice daily, 60 tablets, no refills. 6. Colace 100 mg p.o. daily, 30 tablets, no refills. 7. [place] 5/325 one tablet p.o. q.6 hours as needed, 10 tablets with no refills. 8. Motrin 800 mg p.o. q.8 hours as needed, 30 tablets with no refills. 9. Cozaar 50 mg p.o. daily. 10. Magnesium oxide 100 mg p.o. daily. 11. Glucophage 500 mg p.o. twice daily. 12. Omeprazole 40 mg p.o. every morning. 13. Pyridium 200 mg p.o. q.8 hours as needed, 30 tablets with no refills. 14. Flomax 0.4 mg p.o. daily, 30 capsules with no refills. 15. Stiolto 1 spray inhalation daily. DIET: Heart healthy. ACTIVITY: As tolerated. CONDITION: Good. DIAGNOSTICS/LAB VALUES: Hematology obtained on 03/24/2018: WBC 2.7, hemoglobin 16.0, hematocrit 37.8, platelet count 266,000. Chemistry obtained on 03/24/2018: Sodium 139, potassium 4.2, chloride 110, carbon dioxide 28, BUN 27, creatinine 0.34, glucose 97, calcium 8.8. Total bilirubin 1.6, AST 32, ALT 32, alkaline phosphatase 71, total protein 7.7, albumin 4.3. Urinalysis obtained 03/22/2018: Color dark yellow, appears cloudy. pH 5.0, specific gravity 1.018, protein 100, glucose negative, ketones negative, occult blood negative, nitrite negative, bilirubin negative, urobilinogen 4.0, leukocyte esterase large. WBC greater than 182, RBC 20, bacteria 2+, WBC many, epithelial squamous cells 1, mucus few. Microbiology obtained on 03/22/2018 reveals E. coli in the blood cultures. Urine culture obtained on 03/22/2018 reveals E. coli. Blood cultures obtained on 03/23/[address] of the abdomen and pelvis obtained on 03/22/2018 reveals no acute suspicious abdominal or pelvic abnormality appreciated. Markedly enlarged prostate. PHYSICAL EXAMINATION: GENERAL: The patient is a well-developed, well-nourished 72-year-old -[place] male who is awake, alert, and oriented to person, place, time, and situation. He is verbal and conversational. Does not appear to be in any acute distress. VITAL SIGNS: Temperature 98.0, pulse 60, respirations 17, blood pressure 132/68, oxygen saturation 91% on room air. SKIN: Warm and dry, no rashes, not diaphoretic. HEENT: Pupils equal, round, and reactive to light and accommodation. Conjunctivae pink. There is no evidence of JVP. CVS: Heart is regular. There is no murmur or rub. CHEST: Clear and symmetrical, unlabored. ABDOMEN: Soft, nontender, nondistended. BACK: No CVA tenderness or sacral edema. EXTREMITIES: No clubbing, cyanosis, or edema. PSYCHIATRIC: Appropriate affect, pleasant mood. HISTORY OF PRESENT ILLNESS: The patient is a 72-year-old -[place] male with a past medical history of coronary artery disease. The patient presented to the emergency department with a chief complaint of abdominal pain, urinary urgency and frequency. The patient presented with 3 days of fever, chills, generalized body ache, as well as suprapubic pain with urinary frequency and dysuria. The patient also noted that he felt constipated. Upon evaluation in the emergency department, the patient was found to be ill with a white count of 11.8. He was at his baseline creatinine of 1.3, but a urinalysis was grossly positive for urinary tract infection. The patient was referred to the hospitalist for admission. HOSPITAL COURSE: The patient was admitted to the telemetry unit. The patient was gently hydrated and was placed on antibiotic coverage, which did include Levaquin. The patient's urine culture was positive for E. coli and his blood cultures became positive for the same and finalizes a pansensitive E. coli. Repeat cultures were found to be negative. The patient was felt, given his pain and sensitivity with examination, that he did have an acute prostatitis as well, and therefore will be treated for a whole month. The patient is to follow up with his Urology, and the patient is much improved and ready for discharge. DISCHARGE PLAN: 1. The patient will follow up with his primary care provider as needed. 2. The patient will follow up with his urologist within 2 to 4 weeks for hospital followup. Time spent on this discharge including physical examination, patient education, review of records, is 25 minutes. DICTATING PHYSICIAN: BIBI FRANKS NP [id number] PHY#: [id number] ID: [id number] JOB#: [id number] ACCT: [id number] cc:LAMIN BRUSH M.D. > MTDDanni
== END 2018-03-26 10:39 | disposition home or self-care (01) | DRG 872 ==
LOC: ER 10:00 → EH 12:09 → 4S 14:09 → OBSVTOIN 03-23 13:51
PROVIDERS: ADMIT Internal Medicine; ATTEND Internal Medicine
PROC: 5A09457 Assistance with Respiratory Ventilation, 24-96 Consecutive Hours, Continuous Positive Airway Pressure (ICD-10-PCS; principal; 2018-03-22)
PROC: 3E0F73Z Introduction of Anti-inflammatory into Respiratory Tract, Via Natural or Artificial Opening (ICD-10-PCS; 2018-03-22)
PROC: 3E02340 Introduction of Influenza Vaccine into Muscle, Percutaneous Approach (ICD-10-PCS; 2018-03-26)
DX: A41.9 Sepsis, unspecified organism (principal); N39.0 Urinary tract infection, site not specified; N41.0 Acute prostatitis; B96.20 Unspecified Escherichia coli [E. coli] as the cause of diseases classified elsewhere; I25.10 Atherosclerotic heart disease of native coronary artery without angina pectoris; E78.00 Pure hypercholesterolemia, unspecified; J44.9 Chronic obstructive pulmonary disease, unspecified; E11.9 Type 2 diabetes mellitus without complications; G47.33 Obstructive sleep apnea (adult) (pediatric); I12.9 Hypertensive chronic kidney disease with stage 1 through stage 4 chronic kidney disease, or unspecified chronic kidney disease; E11.22 Type 2 diabetes mellitus with diabetic chronic kidney disease; N18.2 Chronic kidney disease, stage 2 (mild); M19.90 Unspecified osteoarthritis, unspecified site; F10.20 Alcohol dependence, uncomplicated; R31.9 Hematuria, unspecified; E66.9 Obesity, unspecified; Z68.39 Body mass index [BMI] 39.0-39.9, adult; Z23 Encounter for immunization; Z79.899 Other long term (current) drug therapy; Z95.5 Presence of coronary angioplasty implant and graft; Z87.891 Personal history of nicotine dependence; Z82.61 Family history of arthritis; Z80.6 Family history of leukemia
CPT/HCPCS: 36415; 74178; 80048; 80053; 81001; 82962; 85025; 85027; 87040; 87077; 87086; 87088; 87186; 90471; 90686; 94660; G0008; G0378; J0696; J1644; J1885; J1956; J2405; J3490; J7030; J7620

== ENCOUNTER → 2020-03-09 | Outpatient (CLI) | payer MEDICARE ==
--- NOTE | 2020-03-09 19:44 | XCELERA REPORT ---
[address] [address] Transthoracic Echocardiogram Report Name: SAROJ CAMPOS Age: 74 yrs Gender: Male : 1945 Patient Status: Outpatient Patient Location: Study Date: 03/09/2020 01:06 PM History: CAD Obesity CHF Dyspnea Height: 73 in Weight: 310 lb BSA: 2.6 m2 Procedure: A complete two-dimensional transthoracic echocardiogram was performed (2D, M-mode, spectral and color flow Doppler). The study was technically difficult with many images being suboptimal in quality. Images from the parasternal window were difficult to obtain and are suboptimal in quality. The apical views were difficult to obtain and are suboptimal in quality. Reason For Study: HEART FAILURE Previous Evaluation: No previous studies were available. History: CAD Obesity CHF Dyspnea. Ordering Physician: LIANNA ORELLANA Performed By: Juanita Nicole Interpretation Summary The study was technically difficult with many images being suboptimal in quality. Left ventricular systolic function is normal. The Ejection Fraction estimate is 55-60% The right ventricular systolic function is normal. There is a trace amount of mitral regurgitation There is no aortic valve stenosis There is moderate pulmonary hypertension by echo There is no pericardial effusion. MMode/2D Measurements & Calculations RVDd: 2.4 cm LVIDd: 5.5 cm FS: 31.5 % Ao root diam: 3.5 cm IVSd: 0.96 cm LVIDs: 3.8 cm EDV(Teich): 148.3 ml Ao root area: 9.5 cm2 LVPWd: 0.97 cm ESV(Teich): 61.1 ml EF(Teich): 58.8 % Doppler Measurements & Calculations MV E max tae: MV dec slope: Ao V2 max: LV V1 max P.7 cm/sec 282.3 cm/sec2 142.3 cm/sec 2.1 mmHg MV A max tae: MV dec time: 0.18 secAo max PG: LV V1 max: 56.6 cm/sec 8.1 mmHg 73.1 cm/sec MV E/A: 0.90 PA V2 max: TR max tae: 92.6 cm/sec 401.3 cm/sec PA max P.4 mmHg TR max P.4 mmHg Left Ventricle The left ventricle is borderline dilated. There is mild to moderate concentric left ventricular hypertrophy. Left ventricular systolic function is normal. The Ejection Fraction estimate is 55-60%. Doppler measurements suggest impaired left ventricular relaxation, which is associated with grade I/IV or mild diastolic dysfunction. Regional wall motion abnormalities cannot be excluded due to limited visualization. Right Ventricle The right ventricle is not well visualized secondary to technical limitations. The right ventricular systolic function is normal. Atria The right atrium is mild to moderately dilated. The left atrium is borderline dilated. The interatrial septum is intact with no evidence for an atrial septal defect. There is no Doppler evidence for an interatrial shunt. Mitral Valve The mitral valve is grossly normal. There is no mitral valve stenosis. There is a trace amount of mitral regurgitation. Aortic Valve The aortic valve is moderately calcified. The aortic valve is sclerotic and shows some degree of functional abnormality. The aortic valve is trileaflet. The aortic valve opens well. There is no aortic valve stenosis. No aortic regurgitation is present. Tricuspid Valve The tricuspid valve is normal in structure and function. There is no tricuspid stenosis. There is a mild to moderate amount of tricuspid regurgitation. Right ventricular systolic pressure is estimated to be elevated at >60mmHg. There is moderate pulmonary hypertension by echo. Pulmonic Valve The pulmonic valve is not well seen, but is grossly normal. There is no pulmonic valvular stenosis. There is a trace amount of pulmonic regurgitation. Great Vessels The aortic root is normal size. The inferior vena cava appeared normal and decreased > 50% with respiration (RAP 5-10 mmHg). Effusions There is no pericardial effusion. : LIANNA ORELLANA Anil
== END ==
LOC: SP 13:42
PROVIDERS: ATTEND Internal Medicine
DX: I11.0 Hypertensive heart disease with heart failure (principal); I50.9 Heart failure, unspecified; I25.10 Atherosclerotic heart disease of native coronary artery without angina pectoris; I27.20 Pulmonary hypertension, unspecified; I07.1 Rheumatic tricuspid insufficiency
CPT/HCPCS: 93306